=== PATIENT | male | born 1950 | race Caucasian/White ===

== ENCOUNTER 2020-12-21 20:00 | Outpatient (CLI) | payer MEDICARE, OTHER, SELFPAY | END 2020-12-21 20:01 | disposition home or self-care (01) | LOC: SLEEP 12-22 09:04 | PROVIDERS: Family Provider Family Medicine; PCP Family Medicine; Visit Provider Internal Medicine Pulmonary Disease | DX: G47.30 Sleep apnea, unspecified (principal) | CPT/HCPCS: 95811 ==

== ENCOUNTER 2021-09-15 08:13 | Outpatient (CLI) | payer MEDICARE, OTHER, SELFPAY ==
[2021-09-15 08:43] LABS: Basophils # 0.1 10^3/uL (0.0-0.1); Basophils % 1.1 %; Eosinophils % 0.2 %; Hematocrit 37.4 % (42.0-52.0); Hemoglobin 11.7 g/dL (11.7-16.6); Lymphocytes # 1.5 10^3/uL (0.8-4.8); Lymphocytes % 28.6 %; Mean Corpuscular HGB Conc 31.3 g/dL (30.0-36.0); Mean Corpuscular Hemoglobin 20.2 pg (28.0-34.0); Mean Corpuscular Volume 64.7 fl (80-94); Mean Platelet Volume 10.9 fL (7.4-10.4); Monocytes # 0.4 10^3/uL (0.2-0.9); Monocytes % 6.8 %; Neutrophils # 3.33 10^3/uL (1.8-7.7); Neutrophils % 63.1 %; Nucleated Red Blood Cells % 0 %; Platelet Count 291 10^3/cmm (130-400); Red Blood Count 5.78 10^6/uL (4.1-5.3); Red Cell Distribution Width 17.7 % (12.1-15.1); White Blood Count 5.3 10^3/uL (4.0-10.0)
[2021-09-15 08:59] LABS: Alanine Aminotransferase 18 U/L (0-41); Albumin Level 4.5 g/dL (3.5-5.2); Alkaline Phosphatase 59 IU/L (40-130); Anion Gap 19.4 (5-19); Aspartate Amino Transferase 23 U/L (0-40); Blood Urea Nitrogen 16 mg/dL (8-23); Calcium 8.9 mg/dL (8.5-10.5); Carbon Dioxide 20 mmol/L (22-29); Chloride 105 mmol/L (98-107); Globulin 2.4 g/dL (1.3-4.6); Glomerular Filtration Rate 73.9 mL/min (90-130); Glucose 134 mg/dL (65-115); Osmolality Calculated 293 mOsm/kg (285-295); Potassium 4.4 mmol/L (3.5-5.1); Sodium 140 mmol/L (136-145); Total Bilirubin 1.6 mg/dL (0.15-1.2); Total Protein 6.9 g/dL (6.6-8.7)
[2021-09-15 11:41] LABS: Ferritin 522 ng/mL (30-400); Iron 133 ug/dL (59-158); Percent Saturation 53.2 % (20-50); Total Iron Binding Capacity 250 mcg/dl; Unsaturated Iron Binding 117 ug/dL (112-347)
--- NOTE | 2021-09-15 15:08 | ONC CON_ITS ---
Dr. Mayers New Patient Note Patient: Tee Quezada Unit #: [id number]: 1950 Dicatated By: Nel Mayers M.D.Date of Visit: Sep 15, 2021 Onc MED New Patient/Consult Referring Physician: Dr. Ras Adan M.D. History of Present Illness: Mr. Tee Quezada, is a 70-year-old gentleman with history of iron deficiency anemia since childhood, as per patient when he was 7 or 8-year-old he was diagnosed with histoplasmosis and at that time he was also diagnosed with iron deficiency anemia and was given oral iron, patient does not remember how low his hemoglobin was at that time. As per patient he has been taking oral iron almost all his life and now on daily iron pills for the last 30+ years and his hemoglobin stay on the lower side of normal or slightly lower than normal. Patient denies any history of blood transfusion. Patient denies any history of hematology evaluation, patient denies any history of iron infusion. Patient has history of colon polyps as per patient for the last 6 years he has been getting colonoscopy done every 2 years and every time multiple colon polyps get removed, he said 1 time colon resection was discussed but then decided to continue with colonoscopy every 2 years and last colonoscopy was done in July 2020 and next one is due in July [address] Hammer, in [facility]. Patient also has history of guaiac positive stools but never had EGD or capsule endoscopy done in the past. Patient denies any jaundice, denies any hemoptysis or hematemesis, denies any gum bleed or nosebleed, denies any hematuria or dysuria, denies any melena or hematochezia but dark-colored stools probably due to oral iron. As per patient during his visit to his PMD in August 2021, his lab work-up done on August 24, 2021 showed white blood count 7.7 hemoglobin 11.7 hematocrit 36.3 MCV 66.3 and the platelets 264,000 with a normal differential, repeat labs done on August 30, 2021 showed white blood count 6.4 hemoglobin 11.4 hematocrit 34.8 platelets 238,000 with MCV 66.4 his B12 level was 659, no iron studies done are available from that visit. Patient also has history of diabetes for which she is on ADA diet and has lost about 50 pounds in the last couple of years. Denies any night sweats denies any recurrent fever denies any peripheral lymphadenopathy denies any abdominal fullness. Patient has family history of anemia in his mother, who used to take oral iron on regular basis. Patient is only child. Patient denies smoking or alcohol use. Past Medical History: Mr. Quezada's medical history consists of anxiety, BPH, bradycardia, dysthymic disorder, glaucoma, histoplasmosis, hypertension, osteoarthrosis, renal stones, right eye vision loss, and type II diabetes. Past Surgical History: Mr. Quezada's surgical/procedural history consists of left knee surgery, right arm surgery, right inraocular lens, Covid vaccine #1 Moderna in 2020, Covid vaccine #1 Moderna in 2020, and pacemaker placement in 2014. Medications: Accu-Chek Guide Kit t.i.d., ALPRAZolam 1 Tablet (of 0.25 mg) Oral daily PRN, Aspirin 81 1 Tablet (of 81 mg) Tablet, enteric coated Oral daily, Brimonidine Tartrate 1 Drop(s) (of 0.2 %) Solution Ophthalmic b.i.d., C 500 1 Tablet (of 500 mg) Oral b.i.d., Daily Multiple Vitamins 1 Tablet Oral daily, Ferrous Gluconate 1 Tablet (of 324 (37.5 fe) mg) Oral daily, Fish Oil 1 Capsule (of 1200 mg) Oral b.i.d., Fluticasone Propionate 1 [place](s) (of 50 mcg/act) Suspension Nasal b.i.d., Garlic 1 Tablet (of 500 mg) Oral daily, Lancets Miscellaneous, metFORMIN HCl ER 2 Tablet Tablet, enteric coated Oral daily, Naproxen 1 Tablet (of 500 mg) Oral b.i.d. PRN, ReliOn True Metrix Test Strips 1 Strip In Vitro t.i.d., Tamsulosin HCl 1 Capsule (of 0.4 mg) Oral daily Allergies: No Known Allergies. Social History: Mr. Quezada is and he is retired. Mr. Quezada has never smoked. He drinks occasionally. Family History: There is no documented family history. Review Of Symptoms: Review of Systems is not available for this patient. Vital Signs: Performed on Sep 15, 2021 13:44: 6, 0, 32.05 (HIGH), 2.24 sq.m, 71 in, 97 %, 68 /min, 18 /min, 112/71 mm(hg), 97.8 F (LOW), and 229.8 lbs (HIGH). Performance Status: 0 - Fully active, able to carry on all predisease activities without restrictions. (ECOG) Physical Examination: ENMT - No mouth sores, no thrush, no jaundice, Respiratory - Lungs are clear to auscultation, Cardiovascular - Regular rate and rhythm of heart, Abdomen - Soft, bowel sounds present, Extremities - No visible edema. Lab/Imaging: Most recent lab results are not available for this patient. Impression: Microcytic anemia etiology could be multifactorial including iron deficiency or considering lifelong history, hemoglobinopathy like thalassemia. On oral iron for the last 30+ years Diabetes mellitus Colon polyposis, on close monitoring with 2 yearly colonoscopy, last colonoscopy was done in July 2020 Plan: Discussed with patient regarding his labs white blood count 5.3 hemoglobin 11.7 normal being 11.7-16.6, MCV 64.7, platelets 291,000 with a normal differential CMP within normal limits except bilirubin 1.6 Clinically, patient doing well with well compensated mild microcytic anemia, on oral iron for more than 30+ years, tolerating well, no medical record available regarding iron studies but his B12 was checked in August 2021 was normal. Etiology of microcytic anemia could be multifactorial including iron deficiency anemia due to chronic blood loss or malabsorption or considering lifelong history of so-called iron deficiency anemia, patient may have hemoglobinopathy like thalassemia minor which can present as low-grade anemia with microcytosis. We will consider iron studies, if it shows iron deficiency, then he may have iron malabsorption or noncompliance, may consider trial of parenteral iron, on the other hand if iron studies shows normal value, then will consider hemoglobin electrophoresis to rule out underlying hemoglobinopathy like thalassemia minor. Mild hyperbilirubinemia, etiology unclear, could be due to underlying hemoglobinopathy or mild hemolysis, if her iron studies come back normal then hemoglobinopathy may be the cause for mild hyperbilirubinemia., Will monitor, if there is a worsening, will consider work-up. Addendum ; his anemia work-up done today shows iron saturation 53.2% iron 133, ferritin 522 TIBC 250 thus patient has no iron deficiency anemia rather is microcytic anemia is due to hemoglobinopathy like thalassemia trait or minor. At this point, we will stop his oral iron supplements and will proceed with hemoglobin electrophoresis and genetic testing e.g. alpha thalassemia mutations testing. And patient will return to clinic in 2 weeks with CBC Signed By: Nel Mayers M.D. <<Signature on File>>
== END 2021-09-15 08:14 | disposition home or self-care (01) ==
LOC: ONCMED 08:18
PROVIDERS: PCP Family Medicine; Visit Provider Internal Medicine Hematology & Oncology
DX: D64.9 Anemia, unspecified (principal); D56.8 Other thalassemias; E11.9 Type 2 diabetes mellitus without complications; D12.6 Benign neoplasm of colon, unspecified; E80.6 Other disorders of bilirubin metabolism; Z79.899 Other long term (current) drug therapy
CPT/HCPCS: 36415; 80053; 82728; 83020; 83540; 83550; 85014; 85018; 85025; 85041; 99204

== ENCOUNTER 2021-10-14 08:10 | Outpatient (CLI) | payer MEDICARE, OTHER, SELFPAY ==
[2021-10-14 09:01] LABS: Basophils # 0.1 10^3/uL (0.0-0.1); Basophils % 1.2 %; Eosinophils % 0.2 %; Hematocrit 38.1 % (42.0-52.0); Hemoglobin 11.9 g/dL (11.7-16.6); Lymphocytes # 1.7 10^3/uL (0.8-4.8); Lymphocytes % 29.3 %; Mean Corpuscular HGB Conc 31.2 g/dL (30.0-36.0); Mean Corpuscular Hemoglobin 20.1 pg (28.0-34.0); Mean Corpuscular Volume 64.5 fl (80-94); Monocytes # 0.4 10^3/uL (0.2-0.9); Monocytes % 6.3 %; Neutrophils # 3.57 10^3/uL (1.8-7.7); Neutrophils % 62.8 %; Nucleated Red Blood Cells % 0 %; Platelet Count 317 10^3/cmm (130-400); Red Blood Count 5.91 10^6/uL (4.1-5.3); Red Cell Distribution Width 16.1 % (12.1-15.1); White Blood Count 5.7 10^3/uL (4.0-10.0)
[2021-10-14 09:24] LABS: Alanine Aminotransferase 14 U/L (0-41); Albumin Level 4.4 g/dL (3.5-5.2); Alkaline Phosphatase 51 IU/L (40-130); Anion Gap 19.5 (5-19); Aspartate Amino Transferase 17 U/L (0-40); Blood Urea Nitrogen 15 mg/dL (8-23); Carbon Dioxide 23 mmol/L (22-29); Chloride 103 mmol/L (98-107); Chol HDL Ratio 2.59 mg/dL (1.0-5.00); Cholesterol 127 mg/dL (0-200); Globulin 2.2 g/dL (1.3-4.6); Glomerular Filtration Rate 73.9 mL/min (90-130); Glucose 138 mg/dL (65-115); HDL Cholesterol 49 mg/dL (60-100); LDL Cholesterol Calculated 64 mg/dL (50-129); LDL HDL Ratio 1.31 RATIO (0.00-3.22); Osmolality Calculated 295 mOsm/kg (285-295); Potassium 4.5 mmol/L (3.5-5.1); Sodium 141 mmol/L (136-145); Total Bilirubin 1.2 mg/dL (0.15-1.2); Total Protein 6.6 g/dL (6.6-8.7); Triglycerides 68 mg/dL (0-150)
[2021-10-14 09:27] LABS: Estmated Average Glucose 114; Hemoglobin A1C 5.6 % (4.0-6.0)
== END 2021-10-14 08:11 | disposition home or self-care (01) ==
LOC: ONCMED 08:14
PROVIDERS: PCP Family Medicine; Visit Provider Internal Medicine Hematology & Oncology
DX: D64.9 Anemia, unspecified (principal); E66.01 Morbid (severe) obesity due to excess calories; R73.9 Hyperglycemia, unspecified
CPT/HCPCS: 36415; 80053; 80061; 83036; 85025

== ENCOUNTER 2021-12-10 18:24 | Inpatient (IN) | payer MEDICARE, OTHER, SELFPAY ==
[2021-12-10 18:33] VITALS: BP 135/74; PULSE 76; RESP 16; TEMP 36.8; O2SAT 98; BMI 30.2
--- NOTE | 2021-12-10 18:45 | XRR_ITS ---
PROCEDURE INFORMATION: Exam: XR Chest Exam date and time: 12/10/2021 6:45 PM Age: 71 years old Clinical indication: Other: Arrythmia; Prior surgery; Surgery date: 6+ months; Surgery type: Pacemaker TECHNIQUE: Imaging protocol: XR of the chest. Views: 1 view. COMPARISON: No relevant prior studies available. FINDINGS: Tubes, catheters and devices: Left chest ICD is present. Lungs: Unremarkable. No consolidation. Pleural spaces: Unremarkable. No pleural effusion. No pneumothorax. Heart/Mediastinum: Unremarkable. No cardiomegaly. Bones/joints: Unremarkable. XR/XR chest 1V portable [id number] IMPRESSION: No acute pulmonary disease identified.
--- NOTE | 2021-12-10 18:46 | ECG_ITS ---
[facility] Test Date: 2021-12-10 Pat Name: Tee Quezada Department: Room: Gender: Male Visitor Services Associate: : 1950 Requested By: Juan Alberto [place] Order Number: [id number] Hallie MD: Bessy Teague M.D. Measurements Intervals [place] Rate: 73 P: 209 CA: 217 QRS: 20 QRSD: 97 T: 25 QT: 389 QTc: 430 Interpretive Statements ELECTRONIC ATRIAL PACEMAKER FREQUENT ISOLATED PVC'S INDETERMINATE AXIS ABNORMAL RHYTHM ECG Compared to ECG 01/15/2016 17:51:54 Indeterminate axis now present Ventricular-paced complex(es) or rhythm no longer present Electronically Signed On 12-11-2021 8:30:38 ORTHOTIC FINISH GRINDING TECHNICIAN by Bessy Teague M.D. [email or web address] [id number]
[2021-12-10 18:54] VITALS: BP 140/85; PULSE 66; RESP 20; O2SAT 97
--- NOTE | 2021-12-10 19:34 | W.ED.DIZZY ---
HPI - Dizziness General: Chief Complaint: Dizziness Stated Complaint: Low heart rate/pacemaker not working correctly Time Seen by Provider: 12/10/21 18:55 History of Present Illness: HPI Narrative: 71-year-old male with chronic atrial fibrillation, and pacemaker placement. He had his pacemaker placed in 2014. 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 Since that time he has not felt well. He has been dizzy, and mildly generally weak he wears a heart rate monitor and got a warning that his heart rate was as low as 31. He denies significant chest pain, no shortness of breath. No fever cough MD elicited complaint: dizziness and lightheadedness Onset (ago): day(s) Timing: gradual onset Severity: moderate Description: lightheadedness and off-balance Context: other History of similar symptoms: No Exacerbating factors: nothing Relieving factors: nothing Associated symptoms: Denies chest pain, chills, cough, fevers/chills, headache(s) or vomiting Associated neuro symptoms: Deny confusion, difficulty speaking, dysphagia, extremity weakness, facial numbness, facial weakness, numbness in extremities or visual changes Review of Systems Const: Denies: chills Card: Denies: chest pain GI: Denies: abdominal pain, vomiting or dysphagia Neuro: Denies: headache(s), numbness in extremities or confusion PFSH ED PFSH: Medical History Sleep apnea Social History Smoking and tobacco status: never smoked Second hand smoke exposure: Yes Smoking risk assessment/counseling performed?: Yes Alcohol intake: current Alcohol intake frequency: holidays/special occasions only Desire information about alcohol rehabilitation?: No Lives independently: Yes Household members: spouse Housing: House Marital status: service: No Current occupational status: retired Pets and animals: Yes History of recent travel: No Current gender identity: Male Physical Exam HENMT: COMMON NORMALS: normocephalic and atraumatic HEAD & SCALP: normocephalic and atraumatic FACE & SINUS: normal facial exam Eye: COMMON NORMALS: Equal, round and reactive pupils present and EOMs intact bilaterally PUPIL: Yes Equal, round and reactive pupils present Resp: COMMON NORMALS: normal respiratory effort, No use of accessory muscles and clear to auscultation bilaterally AUSCULTATION: clear to auscultation bilaterally Cardio: COMMON NORMALS: Peripheral pulses 2+ throughout RATE: bradycardic (mildly) RHYTHM: abnormal rhythm regularly irregular PERIPHERAL PULSES: Peripheral pulses 2+ throughout GI: COMMON NORMALS: Normal to inspection, nondistended, normoactive bowel sounds present Extremity: COMMON NORMALS: no pedal edema Course Consultations: Consultation #1: muna Consultation #2: abbey Vital Signs: Vital signs: Vital Signs Temperature 97.7 F 12/11/21 01:10 Pulse Rate 67 12/11/21 01:10 Respiratory Rate 18 12/11/21 01:10 Blood Pressure 135/83 12/11/21 01:10 Pulse Oximetry 96 12/11/21 01:10 [facility] - Dizziness Medical Decision Making 71-year-old gentleman with dizziness, generalized weakness. He denies chest pain. He had his pacemaker settings by his avionics installer the day prior. Pacemaker is interrogated here. I spoke with the specialist from [employer]. She notes that the pacemaker appears to be working appropriately, and he was paced out of to multifocal tachycardias early in the day appropriately. However, the patient is throwing quite frequent PVCs. These are stacked after a paced beat with a pause following. This is only generating 1 pulse beat, although the pacer is registering this as 2. The heart rate on his tracing consistently reads in the 70s, while his pulse ox reading because of this, is in the low 50s. This is certainly enough to give him symptoms. Case discussed with cardiology. Recommendations are observation on the monitor, reevaluation in the morning. Spoke with hospitalist who agrees to observe. Lab Data : 12/10/21 20:31 12/10/21 20:31 Radiology Impressions Chest X-Ray 12/10/21 18:45 IMPRESSION: No acute pulmonary disease identified. Laboratory Results WBC 7.6 10^3/uL (4.0-10.0) 12/10/21 20:31 RBC 5.17 10^6/uL (4.1-5.3) 12/10/21 20:31 Hgb 10.3 g/dL (11.7-16.6) L 12/10/21 20: Hct 33.1 % (42.0-52.0) L 12/10/21 20: MCV 64.0 fl (80-94) L 12/10/21 20: MCH 19.9 pg (28.0-34.0) L 12/10/21: MCHC 31.1 g/dL (30.0-36.0) 12/10/21 20: RDW 16.4 % (12.1-15.1) H 12/10/21 20: Plt Count 235 10^3/cmm (130-400) 12/10/21 20: MPV 11.3 fL (7.4-10.4) H 12/10/21 20: Neut % (Auto) 54.7 % 12/10/21: Lymph % (Auto) 37.9 % 12/10/21: Hidalgo % (Auto) 6.3 % 12/10/21: Eos % (Auto) 0.1 % 12/10/21: Baso % (Auto) 0.9 % 12/10/21: Neut # (Auto) 4.14 10^3/uL (1.8-7.7) 12/10/21 20: Lymph # (Auto) 2.9 10^3/uL (0.8-4.8) 12/10/21: Hidalgo # (Auto) 0.5 10^3/uL (0.2-0.9) 12/10/21: Eos # (Auto) 0.0 10^3/uL (0.0-0.8) 12/10/21: Baso # (Auto) 0.1 10^3/uL (0.0-0.1) 12/10/21: Nucleated RBC % (auto) 0 % 12/10/21 Nucleated RBCs # 0.0 /100WBC 12/10/21 20: Sodium 139 mmol/L (136-145) 12/10/21: Potassium 3.7 mmol/L (3.5-5.1) 12/10/21: Chloride 105 mmol/L (98-107) 12/10/21 20: Carbon Dioxide 22 mmol/L (22-29) 12/10/21:31 Anion Gap 15.7 (5-19) 12/10/21 20:31 BUN 27 mg/dL (8-23) H 12/10/21 20:31 Creatinine 1.0 mg/dL (0.7-1.2) 12/10/21 20:31 GFR Calculation Not Reportable 12/10/21 20:31 Glucose 108 mg/dL (65-115) 12/10/21 20:31 Calculated Osmolality 294 mOsm/kg (285-295) 12/10/21 20:31 Calcium 9.7 mg/dL (8.5-10.5) 12/10/21 20:31 Magnesium 2.1 mg/dL (1.7-2.3) 12/10/21 20:31 Iron 81 ug/dL (59-158) 12/10/21 22:38 TIBC 216 mcg/dl 12/10/21 22:38 % Saturation 37.5 % (20-50) 12/10/21 22:38 Unsat Iron Binding 135 ug/dL (112-347) 12/10/21 22:38 Ferritin 433 ng/mL (30-400) H 12/10/21 22:38 Total Bilirubin 0.7 mg/dL (0.15-1.2) 12/10/21 20:31 AST 13 U/L (0-40) 12/10/21 20:31 ALT 11 U/L (0-41) 12/10/21 20:31 Alkaline Phosphatase 50 IU/L (40-130) 12/10/21 20:31 Troponin T Baseline 10 ng/L (0-15) 12/10/21 20:31 Troponin T 120 Minute 12.95 ng/L (0-15) 12/10/21 22:38 Delta Troponin T Not Reportable 12/10/21 22:38 NT-Pro-B Natriuret Pep 392 pg/mL (0-125) H 12/10/21 20:31 Total Protein 6.3 g/dL (6.6-8.7) L 12/10/21 20:31 Albumin 3.9 g/dL (3.5-5.2) 12/10/21 20:31 Globulin 2.4 g/dL (1.3-4.6) 12/10/21 20:31 TSH 1.86 uIU/mL (0.27-4.20) 12/10/21 20:31 Free T4 1.09 ng/dL (0.82-1.77) 12/10/21 22:38 Discharge Plan Discharge Patient Disposition: Admitted As Inpatient Admit Provider: David Rocha Condition: Stable Coding Level of Care Code ED Weigh Tank Operator for Chg Fwd Exam Detailed
[2021-12-10 20:40] LABS: Basophils # 0.1 10^3/uL (0.0-0.1); Basophils % 0.9 %; Eosinophils % 0.1 %; Hematocrit 33.1 % (42.0-52.0); Hemoglobin 10.3 g/dL (11.7-16.6); Lymphocytes # 2.9 10^3/uL (0.8-4.8); Lymphocytes % 37.9 %; Mean Corpuscular HGB Conc 31.1 g/dL (30.0-36.0); Mean Corpuscular Hemoglobin 19.9 pg (28.0-34.0); Mean Platelet Volume 11.3 fL (7.4-10.4); Monocytes # 0.5 10^3/uL (0.2-0.9); Monocytes % 6.3 %; Neutrophils # 4.14 10^3/uL (1.8-7.7); Neutrophils % 54.7 %; Nucleated Red Blood Cells % 0 %; Platelet Count 235 10^3/cmm (130-400); Red Blood Count 5.17 10^6/uL (4.1-5.3); Red Cell Distribution Width 16.4 % (12.1-15.1); White Blood Count 7.6 10^3/uL (4.0-10.0)
[2021-12-10 21:00] LABS: Troponin(5th) Baseline 10 ng/L (0-15)
[2021-12-10 21:10] LABS: Alanine Aminotransferase 11 U/L (0-41); Albumin Level 3.9 g/dL (3.5-5.2); Alkaline Phosphatase 50 IU/L (40-130); Anion Gap 15.7 (5-19); Aspartate Amino Transferase 13 U/L (0-40); Blood Urea Nitrogen 27 mg/dL (8-23); Calcium 9.7 mg/dL (8.5-10.5); Carbon Dioxide 22 mmol/L (22-29); Chloride 105 mmol/L (98-107); Globulin 2.4 g/dL (1.3-4.6); Glucose 108 mg/dL (65-115); Magnesium 2.1 mg/dL (1.7-2.3); NT Pro B Type Natriuretic Pept 392 pg/mL (0-125); Osmolality Calculated 294 mOsm/kg (285-295); Potassium 3.7 mmol/L (3.5-5.1); Sodium 139 mmol/L (136-145); Thyroid Stimulating Hormone 1.86 uIU/mL (0.27-4.20); Total Bilirubin 0.7 mg/dL (0.15-1.2); Total Protein 6.3 g/dL (6.6-8.7)
[2021-12-10 22:29] VITALS: BP 127/87; PULSE 60; RESP 25; O2SAT 95
--- NOTE | 2021-12-10 22:30 | PC.NURSE ---
Pt updated on plan of care, delays in care explained, lab work reviewed, no other immediate needs identified at this time, will continue to monitor.
[2021-12-10 23:12] LABS: Troponin 5 2HR 12.95 ng/L (0-15)
[2021-12-11] VITALS (11 sets, daily range): BP systolic 119–135; BP diastolic 69–83; PULSE 63–70; RESP 16–18; TEMP 36.4–36.7; O2SAT 94–97; BMI 29.8
--- NOTE | 2021-12-11 00:04 | P.HP_ITS ---
Providers/Chief Complaint Primary Care Provider: Ras Adan MD Chief Complaint: Low heart rate/pacemaker not working correctly History of Present Illness The patient is a 71-year-old male who presented to [place] of low heart rate. Indicates that this happened within the few hours leading up to his hospitalization. 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 Velazquez. The patient admits to lightheadedness and dizziness. He denies chest pain, dyspnea, diaphoresis, palpitations, sense of rapid heartbeat, sensation of irregular heartbeat. Indicates during his recent appointment with his concrete mixer loader truck mounted that his pacemaker was adjusted. He has known history of atrial for ablation. He presents for further evaluation Review of Systems General: Reports: 10 or more systems reviewed and unremarkable except in HPI and below Medications/Allergies Home Medications Medication Instructions Recorded Confirmed Last Taken Type alprazolam 0.25 mg tablet (Xanax) 0.25 mg PO DAILY PRN 11/25/20 12/10/21 Unknown History ascorbate calcium (vitamin C) 500 500 mg PO BID 11/25/20 12/10/21 12/10/21 History mg tablet aspirin 81 mg tablet,delayed 81 mg PO DAILY 11/25/20 12/10/21 12/09/21 History release (Adult Low Dose Aspirin) fluticasone propionate 50 2 spray INTRANASAL DAILY 11/25/20 12/10/21 Unknown History mcg/actuation nasal spray,suspension (Allergy Relief (fluticasone)) garlic 300 mg PO DAILY 11/25/20 12/10/21 12/10/21 History multivitamin with minerals 1 tab PO DAILY 11/25/20 12/10/21 12/10/21 History omega-3 fatty acids 1,000 mg 1,000 mg PO DAILY 11/25/20 12/10/21 12/10/21 History capsule (Fish Oil Concentrate) brimonidine 0.2 % eye drops 1 drp OPHTHALMIC (EYE) Q8H 11/30/20 12/10/21 Unknown History vit A 7,160 unit-C 113 mg-E 100 1 tab PO DAILY 11/30/20 12/10/21 12/10/21 Hi story [id number] tablet,delayed rel. (ICaps AREDS) latanoprost 0.005 % eye drops 1 drp OPHTHALMIC (EYE) BEDTIME 12/10/21 12/10/21 12/09/21 History metformin 500 mg tablet 500 mg PO BID 12/10/21 12/10/21 12/10/21 History tamsulosin 0.4 mg capsule (Flomax) 0.4 mg PO DAILY 12/10/21 12/10/21 12/09/21 History Allergies Allergy/AdvReac Type Severity Reaction Status Date / Time beta gordon Allergy Mild Unknown Uncoded 12/10/21 18:38 PFSH Acute PFSH: Medical History Sleep apnea Social History Smoking and tobacco status: never smoked Second hand smoke exposure: Yes Smoking risk assessment/counseling performed?: Yes Alcohol intake: current Alcohol intake frequency: holidays/special occasions only Desire information about alcohol rehabilitation?: No Lives independently: Yes Household members: spouse Housing: House Marital status: service: No Current occupational status: retired Pets and animals: Yes History of recent travel: No Current gender identity: Male Vitals/I&O/Wt Last Vital Signs Temp 98.3 F 12/10/21 18:33 Pulse 60 12/10/21 22:29 Resp 25 H 12/10/21 22:29 BP 127/87 12/10/21 22:29 Pulse Ox 95 12/10/21 22:29 Weight last 48 hrs Weight 98.43 kg Physical Exam Const: COMMON NORMALS: no acute distress, average body habitus, patient oriented x3, no limitations, healthy appearing, alert and well nourished HENMT: COMMON NORMALS: normocephalic, atraumatic, hearing grossly normal bilaterally, external ears normal, EAC's normal, TM's normal bilaterally, Normal external nose present, Normal nasal mucous membranes and turbinates present, moist oral mucous membranes, oropharynx normal, dentition normal and gingiva normal FACE & SINUS: normal facial exam NOSE: Normal external nose present EXTERNAL EAR: Yes external ears normal Eye: COMMON NORMALS: Equal, round and reactive pupils present, EOMs intact bilaterally, conjunctivae normal, no scleral icterus, no papilledema, normal visual carlson by confrontation and fundi normal bilaterally GENERAL EYE: appearance normal, both eyes and all related structures ALIGNMENT: Yes alignment normal PUPIL: Yes Equal, round and reactive pupils present Neck/C-Spine: COMMON NORMALS: full ROM, no lymphadenopathy, supple, no meningeal signs, no JVD, Thyroid normal and No carotid bruits THYROID: Thyroid normal Lymph: LYMPHATIC: no lymphadenopathy noted Chest: COMMONS NORMALS: normal inspection of the chest, normal palpation of entire chest wall, normal inspection of the breasts and normal palpation of the breasts Resp: COMMON NORMALS: normal respiratory effort, No retractions, No use of accessory muscles, clear to auscultation bilaterally and percussion normal Cardio: COMMON NORMALS: no JVD, regular rate, regular rhythm, S1 normal heart sound present, S2 normal heart sound present, No gallops present (Cardio), No clicks present (Cardio), No murmurs present (Cardio), No rub (Cardio) and Peripheral pulses 2+ throughout GI: COMMON NORMALS: Normal to inspection, nondistended, normoactive bowel sounds present, Soft to palpation, non-tender, No hepatosplenomegaly present, no masses and no bruits INSPECTION: Yes normal to inspection AUSCULTATION: Yes normoactive bowel sounds PALPATION: Yes Soft to palpation : COMMON NORMALS: Yes no CVA tenderness, Yes normal external exam, Yes Testes normal, Yes scrotum normal, Yes no scrotal swelling and Yes No hernias present Back/Pelvis: COMMON NORMALS: no CVA tenderness, thoracic and lumbar spine normal to inspection, no thoracic nor lumbar tenderness, thoraco-lumbar ROM normal and straight leg raise negative bilaterally Extremity: COMMON NORMALS: normal to inspection, full ROM, capillary refill normal, no joint enlargement, no clubbing, cyanosis or edema, no calf tenderness and no pedal edema GENERAL: Yes normal exam except as noted Neuro: COMMON NORMALS: patient oriented x3, CN's II-XII intact bilaterally, moves all extremities, no focal motor deficits, no sensory deficits noted, deep tendon reflexes 2+ bilaterally and gait normal SENSORIUM/ORIENTATION: Yes alert CRANIAL NERVES: Yes CN normal except as noted DEEP TENDON REFLEXES: Right triceps reflex intensity grade: 2+, Left triceps reflex intensity grade: 2+, Rt Biceps (C5, C6): 2+, Left biceps reflex intensity grade: 2+, Right brac hioradialis reflex intensity grade: 2+, Left brachioradialis reflex intensity grade: 2+, Right patellar reflex intensity grade: 2+, Left patellar reflex intensity grade: 2+, Right ankle reflex intensity grade: 2+ and Left ankle reflex intensity grade: 2+ PUPIL EXAM: Normal pupillary reactivity/response: bilateral, Dilated: bilateral, Pinpoint: bilateral, Mid position: bilateral, Sluggish: bilateral and Fixed/non-reactive: bilateral Psych: COMMON NORMALS: mental status grossly normal, Normal thought process present, cooperative, normal affect, speech normal, activity/motor behavior normal, denies hallucinations, denies homicidal ideation and denies suicidal ideation Skin: COMMON NORMALS: no rashes or lesions noted, no wounds, turgor normal, no jaundice, no petechiae and no mottling Data : 12/10/21 20:31 12/10/21 20:31 A&P Assessment and plan (1) Sleep apnea: Status: Acute Qualifiers: Sleep apnea type: unspecified type Qualified Code(s): G47.30 - Sleep apnea, unspecified Plan Symptomatic bradycardia. Unknown if this may be related to recent adjustments by his primary concrete mixer loader truck mounted, Dr. Velazquez. Will monitor patient on telemetry and checks her cardiac enzymes. Magnesium and TSH within normal lids. Check free T4. Recheck EKG in the morning. Echo cardiac pending. Emergency department physician has notified me that he has spoken with cardiology who will evaluate the patient Osteoarthritis Atrial for ablation, status post pacemaker placement Seasonal allergies Glaucoma Anxiety Dysthymia Obstructive sleep apnea. CPAP/BiPAP: Okay to use home device and/or pressure when sleeping if the patient uses CPAP/BiPAP at home BPH Microcytic anemia. We will monitor her hemoglobin intermittently. Check serum ferritin, iron panel, fecal occult blood Diabetes. Will check fingerstick glucose before every meal and at bedtime and provide insulin sliding scale Hypertension Obesity. The patient becomes regarding lifestyle modification History of nephrolithiasis DVT prophylaxis. Bilateral SCD Attestations Medical Necessity Statement*: Patient's hospitalization is medically necessary as witnessed by performance of this H&P. Anticipated hospital ablation less than 48 hours Coding Level of Care Code Acute Rn Labor Delivery for Chg Fwd Diagnoses Sleep apnea G47.30 Sleep apnea type: unspecified type
--- NOTE | 2021-12-11 00:46 | ECG_ITS ---
[facility] Test Date: 2021-12-11 Pat Name: Tee Quezada Department: Room: 103 Gender: Male Sales Supervisor: : 1950 Requested By: Juan Alberto [place] Order Number: [id number] Hallie MD: Bessy Teague M.D. Measurements Intervals [place] Rate: 68 P: 97 AR: 274 QRS: 93 QRSD: 108 T: 45 QT: 420 QTc: 450 Interpretive Statements ELECTRONIC ATRIAL PACEMAKER FREQUENT ISOLATED PVC'S BORDERLINE RIGHT AXIS DEVIATION [QRS AXIS > 90] Compared to ECG 12/10/2021 18:33:34 Indeterminate axis no longer present Electronically Signed On 12-11-2021 8:41:40 TRACK GRINDER by Bessy Teague M.D. [id number]
[2021-12-11 01:05] LABS: Free T4 Free Thyroxine 1.09 ng/dL (0.82-1.77)
--- NOTE | 2021-12-11 01:10 | USCV_ITS ---
Tee Quezada Age: 71 Gender: M : 1950 Exam Date: 12/11/2021 08:51 Ordering Phys: David Rocha DO Technologist: Tal Watkins Exam Location: [facility] Indication: Bradycardia BP: 124 / 71 HR: 73 Rhythm: Other Technical Quality: Adequate MEASUREMENTS (Male / Female) Normal Values 2D ECHO LV Diastolic Diameter PLAX 4.8 cm 4.2 - 5.9 / 3.9 - 5.3 cm LV Systolic Diameter PLAX 3.5 cm IVS Diastolic Thickness 1.0 cm 0.6 - 1.0 / 0.6 - 0.9 cm IVS Systolic Thickness 1.1 cm LVPW Diastolic Thickness 1.2 cm 0.6 - 1.0 / 0.6 - 0.9 cm LVPW Systolic Thickness 1.8 cm LVOT Diameter 2.0 cm LV Ejection Fraction 2D Teich 55.1 % LV Ejection Fraction MOD 2C 67.9 % LV Ejection Fraction 2C AL 69.1 % LA Diameter 4.5 cm LA Width 4.2 cm LA Height 5.0 cm RA Width 4.6 cm RA Height 4.6 cm Aorta at Sinotubular Diameter 2.7 cm M-MODE Aortic Annulus Diameter 3.3 cm LA Ao Ratio MM 1.4 MV E Point Septal Separation 0.3 cm DOPPLER AV Peak Velocity 167.0 cm/s LVOT Peak Velocity 129.0 cm/s AV Area Cont Eq vti 2.6 cm squared AV Area Cont Eq pk 2.5 cm squared MV Area PHT 3.6 cm squared Mitral E to A Ratio 0.6 MV E' Velocity 31.0 cm/s Mitral E to MV E' Ratio 6.3 Mitral E to LV E' Lateral Ratio 7.5 Mitral E to LV E' Septal Ratio 5.5 TR Peak Velocity 250.8 cm/s TR Peak Gradient 25.2 mmHg TR Mean Velocity 186.7 cm/s TR Mean Gradient 15.0 mmHg TR Velocity Time Integral 76.2 cm Right Atrial Pressure 3.0 mmHg Pulmonary Artery Systolic Pressu 28.2 mmHg RV Acceleration Time 0.1 s RV Ejection Time 0.3 s RV AcT/ET 0.2 FINDINGS Left Ventricle Normal left ventricular size, systolic function and wall thickness, with no regional wall motion abnormalities. Left ventricular ejection fraction is estimated at 60 %. No diagnostic regional wall motion abnormalities. Grade I diastolic dysfunction (abnormal relaxation filling pattern), normal to mildly elevated filling pressures. Right Ventricle Normal right ventricular size and systolic function. Right ventricular systolic pressure 28.2 mmHg. Right Atrium Normal right atrial size. Left Atrium Mildly increased left atrial size. Mitral Valve Structurally normal mitral valve. No mitral valve stenosis. Trace mitral valve regurgitation. Aortic Valve Aortic valve not well visualized. No aortic valve stenosis. Trace aortic valve regurgitation. Tricuspid Valve Structurally normal tricuspid valve. No tricuspid valve stenosis. Trace tricuspid valve regurgitation. Pulmonic Valve Pulmonic valve not well visualized. Trace pulmonary valve regurgitation. Pericardium No pericardial effusion. Aorta Normal size aortic root and proximal ascending aorta. CONCLUSIONS 1. Normal left ventricular size, systolic function and wall thickness, with no regional wall motion abnormalities. Left ventricular ejection fraction is estimated at 60 %. No diagnostic regional wall motion abnormalities. Grade I diastolic dysfunction (abnormal relaxation filling pattern), normal to mildly elevated filling pressures. 2. Normal right ventricular size and systolic function. 3. Trace aortic valve regurgitation. 4. No prior similar studies to compare. Bessy Teague MD (Electronically Signed) Final Date: 11 December 2021 12:12 S
[2021-12-11 01:57] LABS: Ferritin 433 ng/mL (30-400); Iron 81 ug/dL (59-158); Percent Saturation 37.5 % (20-50); Total Iron Binding Capacity 216 mcg/dl; Unsaturated Iron Binding 135 ug/dL (112-347)
[2021-12-11 04:34] LABS: Troponin 5 6HR 12.57 ng/L (0-15)
--- NOTE | 2021-12-11 06:00 | ECG_ITS ---
[facility] Test Date: 2021-12-11 Pat Name: Tee Quezada Department: Room: 103 Gender: Male Medical Artist: : 1950 Requested By: David Rocha Order Number: [id number] Hallie MD: Bessy Teague M.D. Measurements Intervals [place] Rate: 63 P: 128 MI: 259 QRS: 102 QRSD: 111 T: 60 QT: 424 QTc: 437 Interpretive Statements ELECTRONIC ATRIAL PACEMAKER ELECTRONIC VENTRICULAR PACEMAKER -- CONTOUR ANALYSIS BASED ON INTRINSIC RHYTHM INDETERMINATE AXIS MODERATE INTRAVENTRICULAR CONDUCTION DELAY [110+ ms QRS DURATION] Compared to ECG 12/11/2021 01:25:38 Indeterminate axis now present Intraventricular conduction delay now present Electronically Signed On 12-11-2021 8:40:42 MANAGER STYLE by Bessy Teague M.D. [id number]
[2021-12-11 08:09] LABS: Glucose Point of Care 120 mg/dL (70-110)
--- NOTE | 2021-12-11 09:10 | USR_ITS ---
PROCEDURE INFORMATION: Exam: US Duplex Bilateral Extracranial Arteries, Carotid Arteries Exam date and time: 12/11/2021 9:10 AM Age: 71 years old Clinical indication: Dizziness; Additional info: Dizzy TECHNIQUE: Imaging protocol: Real-time Duplex ultrasound scan of the bilateral carotid and vertebral arteries combining sewell scale, color Doppler and spectral waveform analysis. Bilateral exam. Exam focused on the carotid arteries. COMPARISON: CT head wo con* [id number] 01/15/2016 6:07 PM FINDINGS: Right common carotid artery: Peak systolic velocity distal right CCA 64 cm/s. Right internal carotid artery: Peak right ICA systolic velocity 55 cm/s. Right ICA/CCA ratio: Right ICA/CCA ratio 0.8. Right external carotid artery: No stenosis in the origin. Right vertebral artery: Normal antegrade flow in vertebral arteries bilaterally. Left common carotid artery: Peak systolic velocity distal left CCA 61 cm/s. Left internal carotid artery: Mild bilateral ICA stenosis. Peak systolic velocity left ICA 86 cm/s. Left ICA/CCA ratio: Left ICA/CCA ratio 1.4. Left external carotid artery: No stenosis in the origin. Left vertebral artery: Unremarkable. Antegrade flow. US/CV carotid duplex BI* [id number] IMPRESSION: 1. Normal antegrade flow in vertebral arteries bilaterally. 2. Mild bilateral ICA stenosis. REFERENCES: SRU CRITERIA. The degree of internal carotid artery stenosis is based on criteria defined by the Society of Radiologists in Ultrasound (SRU). Normal is no stenosis. Mild is less than 50% stenosis. Moderate is 50-69% stenosis. Severe is greater than 69% stenosis to near occlusion. Near occlusion is a markedly narrowed lumen. Total occlusion is no detectable patent lumen.
--- NOTE | 2021-12-11 11:23 | P.CONIM_ITS ---
Providers/Reason For Consult Consulting Physician/Specialty*: Dr. Teague, cardiology Reason for Consult*: Bradycardia and dizziness Attending Physician: Everette Graham MD Primary Care Provider: Ras Adan MD History of Present Illness History of Present Illness Tee Quezada is a 71 year old male with past medical history of bradycardia status post permanent pacemaker implantation ( in November 2014), hypertension, diabetes mellitus on oral hypoglycemic agents, prior stress testing in January 2017 that was negative and normal prior LV function as well as obstructive sleep apnea noncompliant to CPAP. He follows up with Dr. Martin in [place]. He presented with complaints of feeling lightheadedness and dizziness and noticed his heart rate running in 30s at home. He tells me recently he was recommended anticoagulation by Dr. Velazquez and some changes to his pacemaker were made. His device was interrogated. Patient has a [employer] dual-chamber pacemaker with 4 years of battery life. He is a paced 49% and V paced 30% of the time. There are 5 episodes of AT/AF (1 min-<1 hr) in duration. The longest episode was on October 23, 2021 with average ventricular rate of 76 bpm and lasted 46 min and another episode on September 01, 2021 with average ventricular rate in ATR 81 bpm that lasted ~32 minutes. I do not have the EGM's available for review. He was also noted to have frequent PVCs (22,330 since last visit on December 09, 2021). No NSVT noted. 155 episodes of NSVT prior to last device reset. EKG showed a paced rhythm with frequent isolated PVCs. Intermittent V paced rhythm was noted as well. Troponin T x3 has been negative. Echocardiogram with normal LV function and no regional wall motion abnormality. Patient gives history of intolerance to beta-gordon with history of depression in the past. Patient denies having any episodes of chest discomfort or exertional shortness of breath. He complains of intermittent episodes of dizziness and tiredness. Review of Systems Const: Denies: chills Card: Denies: chest pain Resp: Denies: dyspnea, productive cough, non-productive cough or wheezing GI: Denies: abdominal pain, vomiting or dysphagia : Denies: hematuria Neuro: Denies: headache(s), numbness in extremities or confusion Psych: Denies: anxiety or depression Sanket/Lymph: Denies: petechiae or purpura Medications/Allergies Home Medications Medication Instructions Recorded Confirmed Last Taken Type alprazolam 0.25 mg tablet (Xanax) 0.25 mg PO DAILY PRN 11/25/20 12/10/21 Unknown History ascorbate calcium (vitamin C) 500 500 mg PO BID 11/25/20 12/10/21 12/10/21 History mg tablet aspirin 81 mg tablet,delayed 81 mg PO DAILY 11/25/20 12/10/21 12/09/21 History release (Adult Low Dose Aspirin) fluticasone propionate 50 2 spray INTRANASAL DAILY 11/25/20 12/10/21 Unknown History mcg/actuation nasal spray,suspension (Allergy Relief (fluticasone)) garlic 300 mg PO DAILY 11/25/20 12/10/21 12/10/21 History multivitamin with minerals 1 tab PO DAILY 11/25/20 12/10/21 12/10/21 History omega-3 fatty acids 1,000 mg 1,000 mg PO DAILY 11/25/20 12/10/21 12/10/21 History capsule (Fish Oil Concentrate) vit A 7,160 unit-C 113 mg-E 100 1 tab PO DAILY 11/30/20 12/10/21 12/10/21 History lwsc-fwyx-ocujjo tablet,delayed rel. (ICaps AREDS) latanoprost 0.005 % eye drops 1 drp OPHTHALMIC (EYE) BEDTIME 12/10/21 12/10/21 12/09/21 History metformin 500 mg tablet 500 mg PO BID 12/10/21 12/10/21 12/10/21 History tamsulosin 0.4 mg capsule (Flomax) 0.4 mg PO DAILY 12/10/21 12/10/21 12/09/21 History Allergies Allergy/AdvReac Type Severity Reaction Status Date / Time beta gordon Allergy Mild Unknown Uncoded 12/10/21 18:38 Current Medications Generic Name Dose Route Start Last Admin Trade Name Freq PRN Reason Stop Dose Admin Insulin Human Lispro 0 unit 12/11/21 08:00 12/11/21 08:11 Insulin Lispro 100 Unit/1 Ml SUBCUT Not Given TIDWM [facility] Protocol PFSH Acute PFSH: Medical History (Updated 12/11/21 @ 16:28 by Bessy Teague MD) Bradycardia History of pacemaker Hypertension Sleep apnea Social History Smoking and tobacco status: never smoked Second hand smoke exposure: Yes Smoking risk assessment/counseling performed?: Yes Alcohol intake: current Alcohol intake frequency: holidays/special occasions only Desire information about alcohol rehabilitation?: No Lives independently: Yes Household members: spouse Housing: House Marital status: service: No Current occupational status: retired Pets and animals: Yes History of recent travel: No Current gender identity: Male Vitals/I&O/Wt Last Vital Signs Temp 97.7 F 12/11/21 04:00 Pulse 64 12/11/21 09:28 Resp 16 12/11/21 09:28 BP 128/71 12/11/21 09:28 Pulse Ox 97 12/11/21 09:28 12/10/21 12/11/21 12/11/21 22:59 06:59 14:59 Intake Total 360 / 360 Balance 360 / 360 Weight last 48 hrs Weight 214 lb Weight 217 lb Physical Exam Narrative: GENERAL: Averagely built and averagely nourished in no acute distress HEENT: Extraocular movement intact. No pallor or icterus. NECK: central trachea, No JVD. No carotid bruit. CARDIOVASCULAR SYSTEM: S1-S2 regular. No murmur rubs or gallops. RESPIRATORY SYSTEM: Chest clear to auscultation. No wheezes rhonchi or rubs heard. No use of accessory muscles. ABDOMEN: Soft, nontender and nondistended. Normal bowel sounds present. EXTREMITIES: No cyanosis or edema. No signs of chronic venous insufficiency. REHAB SPECIALIST: Patient is alert oriented ?3. No focal neurological deficits. SKIN: Normal turgor and temperature. PSYCH: Normal insight and judgment. Data : 12/10/21 20:31 12/11/21 02:57 Other data: Transthoracic echocardiogram 11 December 2021 CONCLUSIONS ?1. Normal left ventricular size, systolic function and wall ?thickness, with no regional wall motion abnormalities. Left ?ventricular ejection fraction is estimated at 60 %. No ?diagnostic regional wall motion abnormalities. Grade I diastolic ?dysfunction (abnormal relaxation filling pattern), normal to ?mildly elevated filling pressures. ?2. Normal right ventricular size and systolic function. ?3. Trace aortic valve regurgitation. ?4.? No prior similar studies to compare. Carotid duplex 11 December 2021 IMPRESSION: 1. Normal antegrade flow in vertebral arteries bilaterally. 2. Mild bilateral ICA stenosis A&P Assessment and plan (1) Symptomatic PVCs: Potassium 20 M EQ p.o. x1, magnesium is greater than 2. -I will start on Cardizem 30 mg p.o. twice daily, given blood pressure on the low and I am not sure if he is going to tolerate it. -I will also start him on low-dose flecainide. -Continue to monitor closely on telemetry. Status: Acute (2) Bradycardia: In setting of PVCs Status: Acute (3) Sleep apnea: Not very compliant with CPAP Status: Acute Qualifiers: Sleep apnea type: unspecified type Qualified Code(s): G47.30 - Sleep apnea, unspecified Plan Possibly atrial fibrillation/flutter: EGM's unavailable. As per patient he was offered anticoagulation. I will follow up on records. History of NSVT Diabetes mellitus recently diagnosed on oral hypoglycemic agents BPH Thank you for allowing me to participate in patient's care. Please feel free to call with questions or concerns. Coding Level of Care Code New Pt Acute Pump Installation And Servicer for Petra Pereira Patient Type New History Comprehensive Exam Comprehensive Medical Decision Making Moderate Complexity Diagnoses Symptomatic PVCs I49.3 Bradycardia R00.1 Sleep apnea G47.30 Sleep apnea type: unspecified type
[2021-12-11 12:36] LABS: Glucose Point of Care 140 mg/dL (70-110)
--- NOTE | 2021-12-11 12:38 | P.PN_ITS ---
Subjective Subjective: Patient was seen this morning, family members at bedside, he tells me that he has not had any dizziness since last night, he has gotten up and ambulated, does have a history of sinus bradycardia etiology was unclear, but had an ICD placed, he tells me that recently he had his pipeline dispatch operator interrogate his ICD, and adjust some settings as he was not feeling well, he tells me that when he was feeling dizzy, his arnulfo on his watch, and his pulse ox showed his heart rates as low as 30 Vitals/I&O/Wt Last Vital Signs Temp 97.7 F 12/11/21 04:00 Pulse 64 12/11/21 09:28 Resp 16 12/11/21 09:28 BP 128/71 12/11/21 09:28 Pulse Ox 97 12/11/21 09:28 12/10/21 12/11/21 12/11/21 22:59 06:59 14:59 Intake Total 360 / 360 Balance 360 / 360 Weight last 48 hrs Weight 97.069 kg Weight 98.43 kg Physical Exam Const: COMMON NORMALS: no acute distress and patient oriented x3 Resp: COMMON NORMALS: normal respiratory effort, No retractions, No use of accessory muscles and clear to auscultation bilaterally AUSCULTATION: clear to auscultation bilaterally Cardio: COMMON NORMALS: regular rate, regular rhythm, S1 normal heart sound present and S2 normal heart sound present RATE: regular rate RHYTHM: reg ular rhythm HEART SOUNDS: S1 normal heart sound present and S2 normal heart sound present GI: COMMON NORMALS: Normal to inspection, nondistended, normoactive bowel sounds present, Soft to palpation, non-tender and No hepatosplenomegaly present PALPATION: Yes Soft to palpation and Yes No hepatosplenomegaly present Extremity: COMMON NORMALS: no pedal edema Neuro: COMMON NORMALS: patient oriented x3 Psych: COMMON NORMALS: mental status grossly normal Data : 12/10/21 20:31 12/10/21 20:31 A&P Assessment and plan (1) Sleep apnea: Status: Acute Qualifiers: Sleep apnea type: unspecified type Qualified Code(s): G47.30 - Sleep apnea, unspecified Plan Symptomatic bradycardia. Unknown if this may be related to recent adjustments by his primary pipeline dispatch operator, Dr. Velazquez. Will monitor patient on telemetry. Magnesium and TSH within normal EKG shows PVCs. Echo cardiac pending. Dr. Mayers on consult Osteoarthritis Atrial for ablation, status post pacemaker placement Seasonal allergies Glaucoma Anxiety Dysthymia Obstructive sleep apnea. CPAP/BiPAP: Okay to use home device and/or pressure when sleeping if the patient uses CPAP/BiPAP at home BPH Microcytic anemia. We will monitor her hemoglobin intermittently. Check serum ferritin, iron panel, fecal occult blood Diabetes. Will check fingerstick glucose before every meal and at bedtime and provide insulin sliding scale Hypertension Obesity. The patient becomes regarding lifestyle modification History of nephrolithiasis DVT prophylaxis. Bilateral SCD Attestations Medical Necessity Statement*: Patient requires hospitalization for sinus bradycardia Coding Level of Care Code Acute Hospital Social Worker for g Fwd Diagnoses Sleep apnea G47.30 Sleep apnea type: unspecified type
[2021-12-11 12:41] LABS: Anion Gap 15.7 (5-19); Blood Urea Nitrogen 24 mg/dL (8-23); Calcium 8.7 mg/dL (8.5-10.5); Carbon Dioxide 23 mmol/L (22-29); Chloride 107 mmol/L (98-107); Glucose 92 mg/dL (65-115); Magnesium 2.2 mg/dL (1.7-2.3); Osmolality Calculated 298 mOsm/kg (285-295); Potassium 3.7 mmol/L (3.5-5.1); Sodium 142 mmol/L (136-145)
[2021-12-11] MEDS: flecainide 100 mg Tablet 50 MG PO ×2 (13:41→23:56)
[2021-12-11] MEDS: dilTIAZem 30 mg Tablet PO ×2 (13:41→23:56)
[2021-12-11 15:30] LABS: LAB Peripheral Smear Sent for Review
[2021-12-11 17:44] LABS: Glucose Point of Care 113 mg/dL (70-110)
[2021-12-11] MEDS: potassium chloride ER 20 mEq Tablet PO (17:44)
--- NOTE | 2021-12-11 19:30 | PC.NURSE ---
Received report from BETH Mckeon. Patient up in room on portable telemetry. Patient denies dizziness or light headedness at this time. Patient is ambulatory. Family at bedside. Patient denies pain or other needs presently. No distress observed. Will continue to monitor.
[2021-12-11 20:22] LABS: Glucose Point of Care 101 mg/dL (70-110)
[2021-12-11] MEDS: latanoprost 0.005% Op Soln 2.5 mL Btl 1 DROP EYE-BOTH (20:23)
[2021-12-12 00:09] VITALS: BP 106/76; PULSE 75; RESP 12
[2021-12-12 03:06] VITALS: BP 115/73; PULSE 63; RESP 14
[2021-12-12 03:34] LABS: Basophils # 0.1 10^3/uL (0.0-0.1); Eosinophils % 0.3 %; Hematocrit 35.5 % (42.0-52.0); Hemoglobin 11.1 g/dL (11.7-16.6); Lymphocytes # 2.4 10^3/uL (0.8-4.8); Mean Corpuscular HGB Conc 31.3 g/dL (30.0-36.0); Mean Corpuscular Hemoglobin 20.5 pg (28.0-34.0); Mean Corpuscular Volume 65.6 fl (80-94); Mean Platelet Volume 11.6 fL (7.4-10.4); Monocytes # 0.4 10^3/uL (0.2-0.9); Monocytes % 6.8 %; Neutrophils # 3.33 10^3/uL (1.8-7.7); Neutrophils % 53.6 %; Nucleated Red Blood Cells % 0 %; Platelet Count 248 10^3/cmm (130-400); Red Blood Count 5.41 10^6/uL (4.1-5.3); Red Cell Distribution Width 16.8 % (12.1-15.1); White Blood Count 6.2 10^3/uL (4.0-10.0)
[2021-12-12 03:52] LABS: Alanine Aminotransferase 12 U/L (0-41); Albumin Level 4.1 g/dL (3.5-5.2); Alkaline Phosphatase 47 IU/L (40-130); Anion Gap 14.1 (5-19); Aspartate Amino Transferase 14 U/L (0-40); Blood Urea Nitrogen 22 mg/dL (8-23); Calcium 8.7 mg/dL (8.5-10.5); Carbon Dioxide 25 mmol/L (22-29); Chloride 107 mmol/L (98-107); Globulin 1.8 g/dL (1.3-4.6); Glucose 104 mg/dL (65-115); Osmolality Calculated 298 mOsm/kg (285-295); Potassium 4.1 mmol/L (3.5-5.1); Sodium 142 mmol/L (136-145); Total Protein 5.9 g/dL (6.6-8.7)
[2021-12-12 04:33] VITALS: PULSE 62
--- NOTE | 2021-12-12 06:13 | PC.NURSE ---
Shift Note Frequent safety and comfort rounds continue. Orders and/or nursing care completed as indicated. Patient monitored for response to intervention and treatment(s). Education provided includes cardizem and flecainide. Patient verbalized complete understanding. Patient requesting to go home and have planned cardiac stress as an outpatient. Patient denies pain or needs. No distress observed. Will continue to monitor.
[2021-12-12 06:25] LABS: Glucose Point of Care 126 mg/dL (70-110)
--- NOTE | 2021-12-12 06:25 | PC.NURSE ---
Patient up ambulating in the halls. Denies any dizziness or lightheadedness this morning. Will continue to monitor.
--- NOTE | 2021-12-12 08:32 | PM.PN ---
Subjective Subjective: Feels well denies any complaints. Is still having isolated PVCs on telemetry. Patient also tells me today that he was prescribed Eliquis by his primary automotive tire worker that he has at home. He has not started taking it at home yet and he is reluctant to start it. Records from [facility] were obtained and reviewed. Recent records from Dr. Martin could not be obtained. Medications: Reviewed: Yes Vitals/I&O/Wt Last Vital Signs Temp 97.6 F 12/11/21 16:00 Pulse 62 12/12/21 04:33 Resp 14 12/12/21 03:06 BP 115/73 12/12/21 03:06 Pulse Ox 97 12/11/21 09:28 12/11/21 12/12/21 12/12/21 22:59 06:59 14:59 Intake Total 480 / 840 50 / 890 Balance 480 / 840 50 / 890 Weight last 48 hrs Weight 214 lb Weight 217 lb Physical Exam Narrative: GENERAL: Averagely built and averagely nourished in no acute distress HEENT: Extraocular movement intact. No pallor or icterus. NECK: No JVD. No carotid bruit. CARDIOVASCULAR SYSTEM: S1-S2 regular. No murmur rubs or gallops. RESPIRATORY SYSTEM: Chest clear to auscultation. No wheezes rhonchi or rubs heard. No use of accessory muscles. ABDOMEN: Soft, nontender and nondistended. Normal bowel sounds present. EXTREMITIES: No cyanosis or edema. No signs of chronic venous insufficiency. MEDICAL IMAGING DIRECTOR: Patient is alert oriented ?3. No focal neurological deficits. SKIN: Normal turgor and temperature. PSYCH: Normal insight and judgment. Data : 12/12/21 02:44 12/12/21 02:44 Micro: Microbiology 12/11/21 16:00 Occult Blood (FIT) - Final Stool - Stool Aspirate A&P Assessment and plan (1) Symptomatic PVCs: -I will start on Cardizem 30 mg p.o. twice daily, given blood pressure on the low and I am not sure if he is going to tolerate it. -I will also start him on low-dose flecainide. EKG today reviewed and increase flecainide 100 mg twice a day -Continue to monitor closely on telemetry. -Set him up for lexiscan stress test as an outpatient. Patient has an appointment with Dr. Martin tomorrow and does not want to miss it. Status: Acute (2) Bradycardia: In setting of PVCs Status: Acute (3) Sleep apnea: Not very compliant with CPAP Status: Acute Qualifiers: Sleep apnea type: unspecified type Qualified Code(s): G47.30 - Sleep apnea, unspecified Plan S/p dual-chamber permanent pacemaker placement for bradycardia, device interrogated and was found to be functioning appropriately. Atrial fibrillation/flutter on PPM: There are 5 episodes of AT/AF (1 min-<1 hr) in duration.? The longest episode was on October 23, 2021 with average ventricular rate of 76 bpm and lasted 46 min and another episode on September 01, 2021 with average ventricular rate in ATR 81 bpm that lasted ~32 minutes.? I do not have the EGM's? available for review.?EGM's unavailable. As per patient , he is willing to start Eliquis 5 mg BID (as prescribed by his primary automotive tire worker) while in the hospital. History of NSVT Diabetes mellitus recently diagnosed on oral hypoglycemic agents BPH Thank you for allowing me to participate in patient's care. Please feel free to call with questions or concerns. Attestations Medical Necessity Statement*: Stable to be discharged home later today. Coding Level of Care Code Established Pt Acute Geothermal Production Manager for Petra Pereira Patient Type Established History Comprehensive Exam Comprehensive Medical Decision Making Moderate Complexity Diagnoses Symptomatic PVCs I49.3 Bradycardia R00.1 Sleep apnea G47.30 Sleep apnea type: unspecified type
[2021-12-12] MEDS: tamsulosin 0.4 mg Capsule PO (09:35)
--- NOTE | 2021-12-12 10:00 | ECG_ITS ---
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 Measurements Intervals [place] Rate: 66 P: 185 VT: 242 QRS: 27 QRSD: 104 T: 37 QT: 424 QTc: 445 Interpretive Statements ELECTRONIC ATRIAL PACEMAKER with isolated PVCs INDETERMINATE AXIS ABNORMAL RHYTHM ECG Compared to ECG 12/11/2021 06:01:25 Ventricular-paced complex(es) or rhythm no longer present Intraventricular conduction delay no longer present Electronically Signed On 12-12-2021 12:11:33 NUCLEAR SCIENTIST by Bessy Teague M.D. [id number]
[2021-12-12 10:27] VITALS: BP 112/77; PULSE 62; RESP 12; TEMP 36.6
[2021-12-12 11:31] LABS: Glucose Point of Care 130 mg/dL (70-110)
[2021-12-12] MEDS: apixaban 5 mg Tablet PO (11:39)
[2021-12-12] MEDS: flecainide 100 mg Tablet PO (11:39)
--- NOTE | 2021-12-12 11:59 | P.DS_ITS ---
Discharge Providers Date of Admission: 12/11/21 19:41 Date of Discharge: December 12, 2021 Attending Provider at Admission: David Rocha DO Attending Provider at Discharge: Everette Graham MD Primary Care Provider: Ras Adan MD Diagnoses at Discharge Discharge Diagnosis (1) Symptomatic PVCs: Status: Acute (2) Bradycardia: Status: Acute (3) Sleep apnea: Status: Acute Qualifiers: Sleep apnea type: unspecified type Qualified Code(s): G47.30 - Sleep apnea, unspecified Reason for Visit Reason for Visit: Low heart rate/pacemaker not working correctly Hospital Course Hospital Course This is a 75-year-old male with a past medical history of bradycardia status pos t pacemaker placement, hypertension, diabetes, follows with Dr. Lovell in [place], who presents to [facility] due to lightheadedness, dizziness, bradycardia Patient was admitted to [facility] for symptomatic PVCs, cardiac echocardiogram shows an EF of 60%, carotid artery ultrasound mild bilateral ICA stenosis, no pacemaker interrogation showed 5 episodes of AT/AF, cardiology was consulted, was placed on Cardizem 30 every 12 hours, with flecainide 100 mg twice a day, was monitored as inpatient. Was also started on Eliquis 5 mg twice daily. He will be discharged with close follow-up with Dr. Velazquez as outpatient. Physical Exam Const: COMMON NORMALS: no acute distress and patient oriented x3 Resp: COMMON NORMALS: normal respiratory effort, No retractions, No use of accessory muscles and clear to auscultation bilaterally AUSCULTATION: clear to auscultation bilaterally Cardio: COMMON NORMALS: regular rate, regular rhythm, S1 normal heart sound present and S2 normal heart sound present RATE: regular rate RHYTHM: regular rhythm HEART SOUNDS: S1 normal heart sound present and S2 normal heart sound present GI: COMMON NORMALS: Normal to inspection, nondistended, normoactive bowel sounds present, Soft to palpation, non-tender and No hepatosplenomegaly present PALPATION: Yes Soft to palpation and Yes No hepatosplenomegaly present Extremity: COMMON NORMALS: no pedal edema Neuro: COMMON NORMALS: patient oriented x3 Psych: COMMON NORMALS: mental status grossly normal Discharge Data Studies Completed and Pending Completed Studies During Hospitalization Category Date Time Status XR chest 1V portable [id number] Urgent Exams 12/10/21 18:45 Completed US carotid duplex bilateral [CV carotid duplex BI* Ultrasound 12/11/21 09:10 Completed [id number]] Routine US echo complete [CV. echo complete* [id number]] Routine Ultrasound 12/11/21 01:10 Completed Pending at discharge Category Date Time Status Complete Blood Count w/Auto AM LABS Lab 12/13/21 04:00 Ordered Complete Blood Count w/Auto AM LABS Lab 12/14/21 04:00 Ordered Comprehensive Metabolic Panel AM LABS Lab 12/13/21 04:00 Ordered Comprehensive Metabolic Panel AM LABS Lab 12/14/21 04:00 Ordered Radiology Impressions Chest X-Ray 12/10/21 18:45 IMPRESSION: No acute pulmonary disease identified. Carotid Doppler Study 12/11/21 09:10 IMPRESSION: 1. Normal antegrade flow in vertebral arteries bilaterally. 2. Mild bilateral ICA stenosis. REFERENCES: SRU CRITERIA. The degree of internal carotid artery stenosis is based on criteria defined by the Society of Radiologists in Ultrasound (SRU). Normal is no stenosis. Mild is less than 50% stenosis. Moderate is 50-69% stenosis. Severe is greater than 69% stenosis to near occlusion. Near occlusion is a markedly narrowed lumen. Total occlusion is no detectable patent lumen. Laboratory Results WBC 6.2 10^3/uL (4.0-10.0) 12/12/21 02:44 RBC 5.41 10^6/uL (4.1-5.3) H 12/12/21 02:44 Hgb 11.1 g/dL (11.7-16.6) L 12/12/21 02:44 Hct 35.5 % (42.0-52.0) L 12/12/21 02:44 MCV 65.6 fl (80-94) L 12/12/21 02:44 MCH 20.5 pg (28.0-34.0) L 12/12/21 02:44 MCHC 31.3 g/dL (30.0-36.0) 12/12/21 02:44 RDW 16.8 % (12.1-15.1) H 12/12/21 02:44 Plt Count 248 10^3/cmm (130-400) 12/12/21 02:44 MPV 11.6 fL (7.4-10.4) H 12/12/21 02:44 Neut % (Auto) 53.6 % 12/12/21 02:44 Lymph % (Auto) 38.0 % 12/12/21 02:44 [place] % (Auto) 6.8 % 12/12/21 02:44 Eos % (Auto) 0.3 % 12/12/21 02:44 Baso % (Auto) 1.0 % 12/12/21 02:44 Neut # (Auto) 3.33 10^3/uL (1.8-7.7) 12/12/21 02:44 Lymph # (Auto) 2.4 10^3/uL (0.8-4.8) 12/12/21 02:44 [place] # (Auto) 0.4 10^3/uL (0.2-0.9) 12/12/21 02:44 Eos # (Auto) 0.0 10^3/uL (0.0-0.8) 12/12/21 02:44 Baso # (Auto) 0.1 10^3/uL (0.0-0.1) 12/12/21 02:44 Nucleated RBC % (auto) 0 % 12/12/21 02:44 Nucleated RBCs # 0.0 /100WBC 12/12/21 02:44 Sodium 142 mmol/L (136-145) 12/12/21 02:44 Potassium 4.1 mmol/L (3.5-5.1) 12/12/21 02:44 Chloride 107 mmol/L (98-107) 12/12/21 02:44 Carbon Dioxide 25 mmol/L (22-29) 12/12/21 02:44 Anion Gap 14.1 (5-19) 12/12/21 02:44 BUN 22 mg/dL (8-23) 12/12/21 02:44 Creatinine 1.0 mg/dL (0.7-1.2) 12/12/21 02:44 GFR Calculation Not Reportable 12/12/21 02:44 Glucose 104 mg/dL (65-115) 12/12/21 02:44 POC Glucose 130 mg/dL (70-110) H 12/12/21 11:22 Calculated Osmolality 298 mOsm/kg (285-295) H 12/12/21 02:44 Calcium 8.7 mg/dL (8.5-10.5) 12/12/21 02:44 Magnesium 2.2 mg/dL (1.7-2.3) 12/11/21 02:57 Iron 81 ug/dL (59-158) 12/10/21 22:38 TIBC 216 mcg/dl 12/10/21 22:38 % Saturation 37.5 % (20-50) 12/10/21 22:38 Unsat Iron Binding 135 ug/dL (112-347) 12/10/21 22:38 Ferritin 433 ng/mL (30-400) H 12/10/21 22:38 Total Bilirubin 1.0 mg/dL (0.15-1.2) 12/12/21 02:44 AST 14 U/L (0-40) 12/12/21 02:44 ALT 12 U/L (0-41) 12/12/21 02:44 Alkaline Phosphatase 47 IU/L (40-130) 12/12/21 02:44 Troponin T Baseline 10 ng/L (0-15) 12/10/21 20:31 Troponin T 120 Minute 12.95 ng/L (0-15) 12/10/21 22:38 Delta Troponin T Not Reportable 12/10/21 22:38 Troponin T Hi Sens 6Hr 12.57 ng/L (0-15) 12/11/21 02:57 Troponin T Hi Sens 6Hr Delta Not Reportable 12/11/21 02:57 NT-Pro-B Natriuret Pep 392 pg/mL (0-125) H 12/10/21 20:31 Total Protein 5.9 g/dL (6.6-8.7) L 12/12/21 02:44 Albumin 4.1 g/dL (3.5-5.2) 12/12/21 02:44 Globulin 1.8 g/dL (1.3-4.6) 12/12/21 02:44 TSH 1.86 uIU/mL (0.27-4.20) 12/10/21 20:31 Free T4 1.09 ng/dL (0.82-1.77) 12/10/21 22:38 Vitals Last Vital Signs Temp 97.8 F 12/12/21 10:27 Pulse 62 12/12/21 10:27 Resp 12 12/12/21 10:27 BP 112/77 12/12/21 10:27 Pulse Ox 97 12/11/21 09:28 Discharge Plan Discharge Patient Disposition: Home Condition: Stable Prescriptions: New diltiazem HCl 30 mg Tablet 30 mg PO Q12H 3 Days Qty: 60 0RF Eliquis 5 mg Tablet 5 mg PO BID@0900,2100 30 Days Qty: 30 0RF Rx Instructions: run through 340b flecainide 100 mg Tablet 100 mg PO Q12H 30 Days Qty: 60 0RF Continued ICaps AREDS 7,160-113-100 [id number] tablet,delayed release (DR/EC) 1 tab PO DAILY 0RF aspirin [Adult Low Dose Aspirin] 81 mg tablet,delayed release (DR/EC) 81 mg PO DAILY 0RF omega-3 fatty acids [Fish Oil Concentrate] 1,000 mg capsule 1,000 mg PO DAILY 0RF fluticasone propionate [Allergy Relief (fluticasone)] 50 mcg/actuation spray,suspension 2 spray intranasal DAILY 0RF Rx Instructions: administer into each nostril garlic Tablet 300 mg PO DAILY 0RF multivitamin with minerals Tablet 1 tab PO DAILY 0RF ascorbate calcium (vitamin C) 500 mg tablet 500 mg PO BID 0RF alprazolam [Xanax] 0.25 mg tablet 0.25 mg PO DAILY PRN (Reason: Anxiety) 0RF latanoprost 0.005 % Drops 1 drp OPHTHALMIC (EYE) BEDTIME 0RF Rx Instructions: both eyes metformin 500 mg Tablet 500 mg PO BID 0RF Flomax 0.4 mg Capsule 0.4 mg PO DAILY 0RF prednisolone acetate 1 % Drops,Suspension 1 drp ophthalmic (eye) BID 0RF Rx Instructions: 1 drop on the left eye. Discharge Orders: Discharge Order (Routine); Ordered 12/12/21 Ordered By: Everette Graham Referrals: Ras Adan MD [Primary Care Provider] - 1 week Discharge Diet: Cardiac Discharge Activity: Resume usual activity Patient Instructions: Diltiazem (By mouth) (Cardizem, Cardizem CD, Cardizem LA, Cardizem SR), Flecainide (By mouth) (Tambocor), Apixaban (By mouth) (Eliquis), Opioid Safety Activity Restrictions/Additional Instructions: -Follow-up with Dr. Martin in [place] -Continue flecainide 100 twice daily -Continue Cardizem 30 twice daily -Monitor heart rates -If you lightheaded or dizziness go to emergency room -Eliquis 5 mg twice daily -Monitor for bloody black stools if so go to the emergency room Discharge Attestations Time Spent in Discharge Care*: less than 30 min Quality Metrics Clinical Quality Measures [ No reported AMI, CVA or VTE this stay] Coding Level of Care Code Acute Chg FW DC note Diagnoses Symptomatic PVCs I49.3 Bradycardia R00.1 Sleep apnea G47.30 Sleep apnea type: unspecified type
[2021-12-12 12:12] VITALS: BP 104/65; PULSE 80; RESP 12; O2SAT 96
[2021-12-12] MEDS: dilTIAZem 30 mg Tablet PO (13:12)
[2021-12-12 14:03] VITALS: BP 104/65; PULSE 80; RESP 12; O2SAT 96
--- NOTE | 2021-12-12 14:03 | PC.NURSE ---
Discharge Note Patient discharged to home via vehicle accompanied by . Discharge instructions reviewed with patient and/or advertising account representative. Mobile pharmacy medications and/or prescriptions provided. Belongings/home medications returned.
== END 2021-12-12 14:05 | disposition home or self-care (01) | DRG 309 ==
LOC: ER 12-11 00:05 → CSU 12-11 00:22
PROVIDERS: Emergency Medicine; Internal Medicine Cardiovascular Disease; Admitting Provider Internal Medicine; Emergency Provider Emergency Medicine; PCP Family Medicine; Visit Provider Family Medicine
DX: I49.3 Ventricular premature depolarization (principal); I48.20 Chronic atrial fibrillation, unspecified; Z95.0 Presence of cardiac pacemaker; Z77.22 Contact with and (suspected) exposure to environmental tobacco smoke (acute) (chronic); G47.33 Obstructive sleep apnea (adult) (pediatric); M19.90 Unspecified osteoarthritis, unspecified site; H40.9 Unspecified glaucoma; F41.9 Anxiety disorder, unspecified; D50.9 Iron deficiency anemia, unspecified; E11.9 Type 2 diabetes mellitus without complications; E66.9 Obesity, unspecified; Z68.29 Body mass index [BMI] 29.0-29.9, adult; Z79.84 Long term (current) use of oral hypoglycemic drugs; Z91.19 Patient's noncompliance with other medical treatment and regimen
CPT/HCPCS: 36415; 36416; 71045; 80048; 80053; 80500; 82274; 82728; 82962; 83540; 83550; 83735; 83880; 84439; 84443; 84484; 85025; 93005; 93306; 93880; 99285; G0378

== ENCOUNTER → 2021-12-29 10:03 | Outpatient (BNVA) | payer MEDICARE, OTHER, SELFPAY | PROVIDERS: PCP Family Medicine; Visit Provider Nurse Practitioner Family | DX: I49.3 Ventricular premature depolarization (principal) | CPT/HCPCS: 99213; 99214 ==

== ENCOUNTER → 2022-02-04 09:07 | Outpatient (BNVA) | payer MEDICARE, OTHER, SELFPAY | PROVIDERS: PCP Family Medicine; Visit Provider Internal Medicine | DX: I49.3 Ventricular premature depolarization (principal); G47.30 Sleep apnea, unspecified; I48.91 Unspecified atrial fibrillation; Z79.01 Long term (current) use of anticoagulants | CPT/HCPCS: 99213; 99214 ==

== ENCOUNTER → 2022-03-04 09:58 | Outpatient (BNVA) | payer MEDICARE, OTHER, SELFPAY | PROVIDERS: PCP Family Medicine; Visit Provider Internal Medicine | DX: Z45.010 Encounter for checking and testing of cardiac pacemaker pulse generator [battery] (principal) | CPT/HCPCS: 93280 ==

== ENCOUNTER → 2022-11-04 10:02 | Outpatient (BNVA) | payer MEDICARE, OTHER, SELFPAY | PROVIDERS: PCP Family Medicine; Visit Provider Internal Medicine | DX: I49.3 Ventricular premature depolarization (principal); G47.30 Sleep apnea, unspecified; I48.91 Unspecified atrial fibrillation; Z95.0 Presence of cardiac pacemaker; Z79.01 Long term (current) use of anticoagulants | CPT/HCPCS: 93280; 99214 ==

== ENCOUNTER → 2023-05-04 14:44 | Outpatient (BNVA) | payer MEDICARE, OTHER, SELFPAY | PROVIDERS: PCP Family Medicine; Visit Provider Internal Medicine | DX: I49.3 Ventricular premature depolarization (principal); G47.30 Sleep apnea, unspecified; I48.91 Unspecified atrial fibrillation; Z79.01 Long term (current) use of anticoagulants; Z95.0 Presence of cardiac pacemaker | CPT/HCPCS: 99214 ==

== ENCOUNTER → 2023-11-29 13:57 | Outpatient (BNVA) | payer MEDICARE, OTHER, SELFPAY | PROVIDERS: PCP Family Medicine; Visit Provider Internal Medicine | DX: I49.3 Ventricular premature depolarization (principal); G47.30 Sleep apnea, unspecified; I48.91 Unspecified atrial fibrillation; Z79.01 Long term (current) use of anticoagulants | CPT/HCPCS: 99214 ==

== ENCOUNTER → 2024-06-05 13:42 | Outpatient (BNVA) | payer MEDICARE, OTHER, SELFPAY | PROVIDERS: PCP Family Medicine; Visit Provider Internal Medicine | DX: I49.3 Ventricular premature depolarization (principal); G47.30 Sleep apnea, unspecified; I48.91 Unspecified atrial fibrillation | CPT/HCPCS: 99214 ==

== ENCOUNTER 2024-10-21 09:14 | Emergency (ER) | payer MEDICARE, OTHER, SELFPAY ==
--- NOTE | 2024-10-21 09:19 | XR_ITS ---
WS: [id number] XR chest 1V portable [id number] REASON FOR EXAM: dyspnea/cough FINDINGS: The chest is unchanged compared to 12/10/2021. Cardiac device over the left chest with dual pacemaker leads trans left subclavian into the right atr ium and right ventricular apex. The heart is within normal limits. Moderate tortuosity and ectasia of the thoracic aorta. Calcified granulomas disease in both hemithoraces. No acute pulmonary parenchymal or pleural findings. No lung nodule or lung mass. XR/XR chest 1V portable [id number] IMPRESSION: Stable chest without acute abnormality.
[2024-10-21 09:23] VITALS: BP 103/68; PULSE 73; TEMP 36.6; O2SAT 97; BMI 31.8
--- NOTE | 2024-10-21 09:24 | ECG_ITS ---
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 Measurements Intervals [place] Rate: 75 P: 0 DE: 0 QRS: -78 QRSD: 173 T: 84 QT: 442 QTc: 496 Interpretive Statements ELECTRONIC VENTRICULAR PACEMAKER ABNORMAL RHYTHM ECG Compared to ECG 12/12/2021 09:48:20 Ventricular premature complex(es) no longer present Atrial-paced complex(es) or rhythm no longer present Indeterminate axis no longer present Electronically Signed On 10-22-2024 23:51:36 TEACHER ASST by Jackson Lopez M.D. [email or web address]
[2024-10-21 09:32] VITALS: BP 101/67; PULSE 78; O2SAT 96
--- NOTE | 2024-10-21 09:36 | ED_ITS ---
HPI - Arrhythmia/Palpitations 2 General: Chief Complaint: Arrhythmia/Palpitations Stated Complaint: pacemaker problems Time Seen by Provider: 10/21/24 09:19 History of Present Illness: 73-year-old male presents emergency room he has an ICD in place he believes ICD has been discharging several times this morning. He is having palpitations. He states he began around 3 AM this morning no chest pain. On exam the patient has obvious muscle fasciculations in the subclavian space these are time because ventricular contractions. They are noticeable to him and somewhat uncomfortable but not particularly painful. He denies any orthopnea shortness of breath leg swelling or chest pain Related Data Home Medications Medication Instructions Recorded Confirmed alprazolam 0.25 mg tablet (Xanax) 0.25 mg PO DAILY PRN Anxiety 11/25/20 10/21/24 ascorbate calcium (vitamin C) 500 500 mg PO BID 11/25/20 10/21/24 mg tablet fluticasone propionate 50 2 spray intranasal DAILY 11/25/20 10/21/24 mcg/actuation nasal spray,suspension (Allergy Relief (fluticasone)) latanoprost 0.005 % eye drops 1 drp ophthalmic (eye) BEDTIME 12/10/21 10/21/24 tamsulosin 0.4 mg capsule (Flomax) 0.4 mg PO DAILY 12/10/21 10/21/24 finasteride 5 mg tablet 5 mg PO DAILY 10/21/24 10/21/24 naproxen 500 mg tablet 500 mg PO BID 10/21/24 10/21/24 venlafaxine 75 mg capsule,extended 75 mg PO DAILY 10/21/24 10/21/24 release 24 hr Previous Rx's Medication Instructions Recorded diltiazem HCl 30 mg tablet 30 mg PO BID #180 tabs 11/06/23 (Cardizem) apixaban 5 mg tablet (Eliquis) 5 mg PO BID #180 tabs 06/05/24 Allergies Allergy/AdvReac Type Severity Reaction Status Date / Time Beta-Blockers Allergy Mild Unknown Verified 10/21/24 09:32 (Beta-Adrenergic Bloc Review of Systems 2 Const: Denies: fever(s) or chills Card: Denies: chest pain Resp: Denies: dyspnea GI: Denies: abdominal pain : Denies: dysuria, urinary frequency or urinary urgency Musc: Denies: neck pain or back pain Skin/Breast: Denies: rash PFSH ED 2 PFSH: Medical History Bradycardia Hypertension History of pacemaker Sleep apnea Social History Smoking and tobacco/nicotine status: never used tobacco/nicotine Second hand smoke exposure: Yes Alcohol intake: current Alcohol intake frequency: holidays/special occasions only Substance/Drug Use: never Lives independently: Yes Household members: spouse Housing: House Marital status: service: No Current occupational status: retired Pets and animals: Yes Do you think of yourself as: Straight/Heterosexual Current gender identity: Male Physical Exam 2 Const: COMMON NORMALS: no acute distress GENERAL APPEARANCE: cooperative and comfortable ORIENTATION/CONSCIOUSNESS: Yes awake, Yes oriented to person, Yes oriented to place and Yes oriented to time HENMT: COMMON NORMALS: normocephalic, atraumatic and hearing grossly normal bilaterally HEAD & SCALP: normocephalic and atraumatic Resp: COMMON NORMALS: normal respiratory effort, No retractions, No use of accessory muscles and clear to auscultation bilaterally AUSCULTATION: clear to auscultation bilaterally Cardio: COMMON NORMALS: regular rate, regular rhythm and No murmurs present (Cardio) RATE: regular rate RHYTHM: regular rhythm GI: COMMON NORMALS: Soft to palpation and No hepatosplenomegaly present A USCULTATION: Yes normoactive bowel sounds PALPATION: Yes Soft to palpation, No Tenderness to palpation present (GI), No Guarding due to palpation present (GI) and Yes No hepatosplenomegaly present Extremity: COMMON NORMALS: normal to inspection, capillary refill normal, no clubbing, cyanosis or edema, no calf tenderness and no pedal edema Neuro: SENSORIUM/ORIENTATION: Yes oriented to person, Yes oriented to place and Yes oriented to time Skin: COMMON NORMALS: no rashes or lesions noted GENERAL SKIN EXAM: no rashes or lesions noted Course 2 Vital Signs: Vital signs: Vital Signs Temperature 97.8 F 10/21/24 09:23 Pulse Rate 73 10/21/24 12:26 Blood Pressure 102/65 10/21/24 12:26 Pulse Oximetry 97 10/21/24 12:26 Oxygen Delivery Me thod Room Air 10/21/24 09:23 MDM - Arrhythmia/Palpitations Medical Decision Making Pacer interrogated his defaulted to a basically safety mode per the description of the tach. His now pacing by unipolar ventricular pacing this results in each paced beat feeling like he strong PVC and also cause a stimulus all the way back up to the pacer pocket to where he gets some movement at the pacer. I called and discussed with his physician who placed the pacer they are aware as your pacer has been recalled. Discussed with him the findings of the pacemaker interrogation today. His blood pressure is right at 100 now. Computer Service Technician reports that this is typical for this particular pacer and that in the unipolar mode it would will generally drop his blood pressure to around 100 systolic. He he states that this is acceptable and he feels comfortable having the patient discharged from the ER they will contact him for follow-up visit tomorrow in the office to discuss changing pacemaker. Patient advised to show to the appointment fasting so they can do the procedure. Offered to transfer via ambulance with cardiology Joanna has not necessary at this time. Medical Records I reviewed the patient's medical records. Lab Data I reviewed the patient's lab results. 10/21/24 09:50 10/21/24 09:50 Radiology Impressions Chest X-Ray 10/21/24 09:19 IMPRESSION: Stable chest without acute abnormality. Laboratory Results WBC 7.07 10^3/uL (3.29-11.43) 10/21/24 09:50 RBC 5.94 10^6/uL (3.85-5.65) H 10/21/24 09:50 Hgb 12.10 g/dL (11.27-16.99) 10/21/24 09:50 Hct 38.8 % (37-53) 10/21/24 09:50 MCV 65.3 fl (82-101) L 10/21/24 09:50 MCH 20.4 pg (27-33) L 10/21/24 09:50 MCHC 31.2 g/dL (30-55) 10/21/24 09:50 RDW 17.2 % (12.1-15.1) H 10/21/24 09:50 Plt Count 264 10^3/cmm (157-399) 10/21/24 09:50 MPV 10.2 fL (7.4-10.4) 10/21/24 09:50 Neut % (Auto) 66.1 % 10/21/24 09:50 Lymph % (Auto) 26.3 % 10/21/24 09:50 [place] % (Auto) 6.5 % 10/21/24 09:50 Eos % (Auto) 0.0 % 10/21/24 09:50 Baso % (Auto) 0.8 % 10/21/24 09:50 Neut # (Auto) 4.67 10^3/uL (1.8-7.7) 10/21/24 09:50 Lymph # (Auto) 1.9 10^3/uL (0.8-4.8) 10/21/24 09:50 [place] # (Auto) 0.5 10^3/uL (0.2-0.9) 10/21/24 09:50 Eos # (Auto) 0.0 10^3/uL (0.0-0.8) 10/21/24 09:50 Baso # (Auto) 0.1 10^3/uL (0.0-0.1) 10/21/24 09:50 Nucleated RBC % (auto) 0 % 10/21/24 09:50 Nucleated RBCs # 0.0 /100WBC 10/21/24 09:50 Sodium 139 mmol/L (136-145) 10/21/24 09:50 Potassium 4.4 mmol/L (3.5-5.1) 10/21/24 09:50 Chloride 105 mmol/L (98-107) 10/21/24 09:50 Carbon Dioxide 23 mmol/L (22-29) 10/21/24 09:50 Anion Gap 15.4 (5-19) 10/21/24 09:50 BUN 16 mg/dL (8-23) 10/21/24 09:50 Creatinine 1.0 mg/dL (0.7-1.2) 10/21/24 09:50 GFR Calculation Not Reportable 10/21/24 09:50 Glucose 127 mg/dL (65-115) H 10/21/24 09:50 Calculated Osmolality 291 mOsm/kg (285-295) 10/21/24 09:50 Calcium 9.5 mg/dL (8.5-10.5) 10/21/24 09:50 Total Bilirubin 1.1 mg/dL (0.15-1.2) 10/21/24 09:50 AST 15 U/L (0-40) 10/21/24 09:50 ALT 13 U/L (0-41) 10/21/24 09:50 Alkaline Phosphatase 62 U/L (40-130) 10/21/24 09:50 Troponin T Baseline 11 ng/L (0-15) 10/21/24 09:50 Total Protein 7.0 g/dL (6.6-8.7) 10/21/24 09:50 Albumin 4.3 g/dL (3.5-5.2) 10/21/24 09:50 Globulin 2.7 g/dL (1.3-4.6) 10/21/24 09:50 All radiology interpretation(s) finalized by discharge Discharge Plan Discharge Patient Disposition: Home Clinical Impression: Pacemaker complications Condition: Stable Prescriptions: No Action fluticasone propionate [Allergy Relief (fluticasone)] 50 mcg/actuation spray,suspension 2 spray intranasal DAILY Rx Instructions: administer into each nostril ascorbate calcium (vitamin C) 500 mg tablet 500 mg PO BID alprazolam [Xanax] 0.25 mg tablet 0.25 mg PO DAILY PRN (Reason: Anxiety) Eliquis 5 mg tablet 5 mg PO BID Qty: 180 1RF diltiazem HCl [Cardizem] 30 mg tablet 30 mg PO BID Qty: 180 3RF latanoprost 0.005 % Drops 1 drp OPHTHALMIC (EYE) BEDTIME Rx Instructions: both eyes tamsulosin [Flomax] 0.4 mg Capsule 0.4 mg PO DAILY venlafaxine 75 mg capsule,extended release 24hr 75 mg PO DAILY finasteride 5 mg tablet 5 mg PO DAILY naproxen 500 mg tablet 500 mg PO BID Discharge Orders: Discharge ED (Routine); Ordered 10/21/24 Ordered By: Wilber Cervantes Referrals: Ras Adan MD [Primary Care Provider] - Patient Instructions: Opioid Safety, Pain Management Activity Restrictions/Additional Instructions: Thank you for choosing [facility] for your healthcare needs today. It is very important that you follow up as instructed or that you return to the Emergency Department should you have concerns or if your condition changes or worsens in any way. You were seen in the emergency room with complaints of your pacemaker not working properly. The pacemaker is defaulted to a safety mode and it is pacing and what is called unipolar. This gives a sensation of an abnormal heartbeat. We discussed with your outside plant technician he feels at this time he can safely be discharged home and follow-up tomorrow in [place] with them at the appointment time they gave you where they will discuss definitive treatment with you. You should be fasting tomorrow when you go to your appointment. Coding Level of Care Code ED Paedodontist for Petra Pereira
[2024-10-21 10:01] LABS: Basophils # 0.1 10^3/uL (0.0-0.1); Basophils % 0.8 %; Hematocrit 38.8 % (37-53); Lymphocytes # 1.9 10^3/uL (0.8-4.8); Lymphocytes % 26.3 %; Mean Corpuscular HGB Conc 31.2 g/dL (30-55); Mean Corpuscular Hemoglobin 20.4 pg (27-33); Mean Corpuscular Volume 65.3 fl (82-101); Mean Platelet Volume 10.2 fL (7.4-10.4); Monocytes # 0.5 10^3/uL (0.2-0.9); Monocytes % 6.5 %; Neutrophils # 4.67 10^3/uL (1.8-7.7); Neutrophils % 66.1 %; Nucleated Red Blood Cells % 0 %; Platelet Count 264 10^3/cmm (157-399); Red Blood Count 5.94 10^6/uL (3.85-5.65); Red Cell Distribution Width 17.2 % (12.1-15.1); White Blood Count 7.07 10^3/uL (3.29-11.43)
[2024-10-21 10:02] VITALS: BP 92/58; PULSE 73; O2SAT 97
[2024-10-21 10:20] LABS: Alanine Aminotransferase 13 U/L (0-41); Albumin Level 4.3 g/dL (3.5-5.2); Alkaline Phosphatase 62 U/L (40-130); Anion Gap 15.4 (5-19); Aspartate Amino Transferase 15 U/L (0-40); Blood Urea Nitrogen 16 mg/dL (8-23); Calcium 9.5 mg/dL (8.5-10.5); Carbon Dioxide 23 mmol/L (22-29); Chloride 105 mmol/L (98-107); Creatinine Clr Calc Pharmacy 80.5374; Globulin 2.7 g/dL (1.3-4.6); Glucose 127 mg/dL (65-115); Osmolality Calculated 291 mOsm/kg (285-295); Potassium 4.4 mmol/L (3.5-5.1); Sodium 139 mmol/L (136-145); Total Bilirubin 1.1 mg/dL (0.15-1.2)
[2024-10-21 10:48] LABS: Troponin(5th) Baseline 11 ng/L (0-15)
[2024-10-21 11:00] VITALS: BP 109/67; PULSE 89; O2SAT 97
[2024-10-21 11:32] VITALS: BP 101/67; PULSE 73; O2SAT 97
[2024-10-21 12:26] VITALS: BP 102/65; PULSE 73; O2SAT 97
== END 2024-10-21 12:29 | disposition home or self-care (01) ==
PROVIDERS: Emergency Provider Family Medicine; PCP Family Medicine
DX: T82.198A Other mechanical complication of other cardiac electronic device, initial encounter (principal); Z79.01 Long term (current) use of anticoagulants; I10 Essential (primary) hypertension; Z95.0 Presence of cardiac pacemaker; X58.XXXA Exposure to other specified factors, initial encounter
CPT/HCPCS: 36415; 71045; 80053; 84484; 85025; 93005; 99285

== ENCOUNTER → 2024-12-03 14:11 | Outpatient (BNVA) | payer MEDICARE, OTHER, SELFPAY | PROVIDERS: PCP Family Medicine; Visit Provider Internal Medicine | DX: I49.3 Ventricular premature depolarization (principal); G47.30 Sleep apnea, unspecified; I48.91 Unspecified atrial fibrillation; Z95.0 Presence of cardiac pacemaker; Z79.01 Long term (current) use of anticoagulants | CPT/HCPCS: 99214 ==

== ENCOUNTER → 2025-05-27 14:58 | Outpatient (BNVA) | payer MEDICARE, OTHER, SELFPAY | PROVIDERS: PCP Family Medicine; Visit Provider Internal Medicine | DX: I48.91 Unspecified atrial fibrillation (principal); Z79.01 Long term (current) use of anticoagulants; I49.3 Ventricular premature depolarization; G47.30 Sleep apnea, unspecified; Z95.0 Presence of cardiac pacemaker | CPT/HCPCS: 99214 ==